=== PATIENT | male | born 1945 | race Caucasian/White ===

== ENCOUNTER → 2017-09-06 | Outpatient (CLI) | payer BC ==
[~2017-09-06] MED LIST: GADAVIST IV PRN; OXYC-90 PO
--- NOTE | 2017-09-06 09:21 | DIAGNOSTIC IMAGING REPORT ---
BRAIN COMBO FOR IAC CLINICAL HISTORY: 71 years-old Male presenting with H91.20 Sudden-onset sensorineural hearing loss, symptoms began in January, worsened since July, bilateral hearing loss, right worse than left, tinnitus. TECHNIQUE: Multisequence, multiplanar MR imaging of the brain was performed before and after the administration of intravenous contrast. Dedicated sequences for evaluation of the internal auditory canals were also performed. IV contrast: 9 mL of Gadavist. COMPARISON: None. FINDINGS: Localizer images: Unremarkable. Internal auditory canals normal. Transiting nerves normal. Normal signal intensity of inner ear structures. No abnormal enhancement on postcontrast imaging. Symmetric enhancement of the facial nerve. Fluid in the bilateral mastoid air cells. Ventricles and sulci normal in size. Brain parenchyma normal in appearance with preserved jaimes-white differentiation. No mass effect or midline shift. No restricted diffusion to suggest acute ischemia. No hemorrhage. No extra-axial fluid collection. T2 skull base flow voids preserved. No abnormal parenchymal enhancement. Bone marrow signal intensity within the calvarium within normal limits. Extensive mucosal thickening with central T2 hypointense, T1 hyperintense debris in the right maxillary sinus. Polypoid mucosal thickening in the left maxillary sinus. IMPRESSION: 1. Fluid in the bilateral mastoid air cells. This would be better demonstrated on noncontrast CT of the temporal bone. 2. Otherwise contrast-enhanced MR examination of the internal auditory canals. 3. No acute intracranial pathology. No abnormal enhancement. 4. Extensive inspissated material in the right maxillary sinus. Correlate clinically for chronic allergic sinusitis. Electronically signed by: Mateo Liu M.D. 09/06/2017 9:20 AM Dictated Date/Time: 09/06/2017 9:10 AM
== END | disposition home or self-care (01) ==
LOC: C.MRIBC 07:43
DX: H91.20 Sudden idiopathic hearing loss, unspecified ear (principal)